=== PATIENT | male | born 1975 ===

== ENCOUNTER 2016-10-05 22:19 | Emergency (ER) | payer BC ==
[2016-10-05 22:38] VITALS: BMI 26.6
[2016-10-05 22:51] VITALS: RESP 18
[2016-10-06 02:17] VITALS: BP 144/87; PULSE 80; TEMP 98.1; O2SAT 98
--- NOTE | 2016-10-06 02:49 | ED PDOC ---
Arrival/HPI - General Chief Complaint: Lower Extremity Problem/Injury Time Seen by Provider: 10/05/16 23:04 Historian: Patient - History of Present Illness Narrative History of Present Illness (Text): 10/06/16 03:32 40-year-old male with a history of prior right knee pain and injury presents today with right knee pain that started while at work. He denies any recent trauma or injury. He is complaining of severe pain over the anterior aspect of the knee radiating into the thigh and into the calf. He denies numbness weakness or tingling in the extremity. Patient states after 911 he had arthroscopic knee surgery on the right knee and occasionally has been getting this exact pain in the leg. He denies fevers or chills. No chest pain or shortness of breath. No abdominal pain. No other complaints. Time/Duration: Prior to Arrival Symptom Onset: Sudden Symptom Course: Unchanged Quality: Aching, Tightness Severity Level: 5 Past Medical History - Provider Review Nursing Documentation Reviewed: Yes - Travel History Have you recently traveled outside [place] w/in the past 3 mons?: No - Infectious Disease Hx of Infectious Diseases: None - Tetanus Immunization Tetanus Immunization: >10 years Ago - Reproductive Currently : No Currently Lactating: No - Past Medical History Past Medical History: No Previous - Cardiac Hx Cardiac Disorders: No - Pulmonary Hx Asthma: Yes - Neurological Hx Neurological Disorder: No - HEENT Hx HEENT Disorder: No - Renal Hx Renal Disorder: No - Endocrine/Metabolic Hx Endocrine Disorders: (borderline DM) - Hematological/Oncological Hx Blood Disorders: No - Integumentary Hx Dermatological Disorder: No - Musculoskeletal/Rheumatological Hx Falls: No - Gastrointestinal Hx Gastrointestinal Disorders: No - Genitourinary/Gynecological Hx Genitourinary Disorders: No - Psychiatric Hx Psychophysiologic Disorder: No Hx Anxiety: No Hx Bipolar Disorder: No Hx Depression: No Hx Emotional Abuse: No Hx Hallucinations: No Hx Panic Disorder: No Hx Post Traumatic Stress Disorder: No Hx Psychosis: No Hx Physical Abuse: No Hx Schizophrenia: No Hx Sexual Abuse: No Hx Substance Use: No - Surgical History Hx Orthopedic Surgery: Yes (LEFT KNEE x2) - Anesthesia Hx Anesthesia: Yes Hx Anesthesia Reactions: No Hx Malignant Hyperthermia: No - Suicidal Assessment Feels Threatened In Home Enviroment: No Family/Social History - Physician Review Nursing Documentation Reviewed: Yes Family/Social History: Unknown Family HX Smoking Status: Never Smoked Hx Alcohol Use: No Hx Substance Use: No Hx Substance Use Treatment: No Allergies/Home Meds Allergies/Adverse Reactions: Allergies Penicillins Allergy (Verified 04/11/15 00:47) RASH Home Medications: Home Meds Medication Instructions Recorded Confirmed Albuterol HFA [Ventolin HFA 90 1 puff INH PRN PRN 04/11/15 12/29/15 mcg/actuation (8 g)] Fluticasone/Salmeterol 500/50 1 puff INH DAILY 04/11/15 12/29/15 [Advair Diskus 500/50] Review of Systems - Review of Systems Constitutional: absent: Fatigue, Fevers Respiratory: absent: SOB, Cough Cardiovascular: absent: Chest Pain, Palpitations Gastrointestinal: absent: Abdominal Pain, Nausea, Vomiting Musculoskeletal: Arthralgias Skin: absent: Rash, Pruritis Neurological: absent: Headache, Dizziness Physical Exam Vital Signs Reviewed: Yes Vital Signs Temp Pulse Resp BP Pulse Ox 10/06/16 02:16 98.1 F 80 18 144/87 98 10/05/16 22:50 98.4 F 99 H 18 142/80 97 Temperature: Afebrile Blood Pressure: Normal Pulse: Regular Respiratory Rate: Normal Appearance: Positive for: Well-Appearing, Non-Toxic, Comfortable Pain Distress: None Mental Status: Positive for: Alert and Oriented X 3 - Systems Exam Head: Present: Atraumatic Respiratory/Chest: Present: Clear to Auscultation Cardiovascular: Present: Regular Rate and Rhythm Lower Extremity: Present: CALF TENDERNESS, NORMAL PULSES, Tenderness (right knee ; + ttp over anterior medial aspect of knee; limited rom with pain. + ttp over anterior thigh and calf. sensation and distal pulses intact. cap refill <2. ), Neurovascularly Intact, Capillary Refill < 2 s. No: Normal ROM, Swelling, Erythema, Deformity, Temperature Abnormalties Neurological: Present: GCS=15 Skin: Present: Warm, Dry, Normal Color. No: Rashes Psychiatric: Present: Alert, Oriented x 3 Medical Decision Making ED Course and Treatment: 10/06/16 03:35 Patient nontoxic well-appearing in no distress with stable vital signs X-rays of the knee: No fracture Venous duplex of the right lower extremity: No DVT verbal report from power lineman technician Toradol IM Patient placed in knee immobilizer. Crutches given for ambulation Patient reassessment: Patient feeling better after medications I discussed all results with patient advised to followup with the orthopedist for the next 2 days. Return if symptoms worsen persist or new symptoms develop Patient verbalizes understanding of discharge instructions and need for immediate followup. Impression: knee pain Motrin every 6 hours as needed for pain Rest, ice, compression, elevation Use crutches for ambulation Followup with the orthopedist within the next 2 days Followup with primary care physician within the next 2 days Return if symptoms worsen persist or if new symptoms develop - RAD Interpretation Radiology Orders: 10/05/16 23:05 KNEE RIGHT 2 VIEWS (AP & LAT) [RAD] Stat DUPLEX LOWER EXTRM VEIN RIGHT [US] Stat - Medication Orders Current Medication Orders: Discontinued Medications Ketorolac Tromethamine (Toradol) 60 mg IM STAT STA Stop: 10/05/16 23:06 Last Admin: 10/06/16 00:15 Dose: 60 mg Disposition/Present on Arrival - Present on Arrival Any Indicators Present on Arrival: No History of DVT/PE: No History of Uncontrolled Diabetes: No Urinary Catheter: No History of Decub. Ulcer: No History Surgical Site Infection Following: None - Disposition Have Diagnosis and Disposition been Completed?: Yes Diagnosis: Knee pain, Leg pain Disposition: HOME/ ROUTINE Disposition Time: 02:11 Patient Plan: Discharge Patient Problems: Current Active Problems Problem Status Onset Knee pain Acute Leg pain Acute Condition: GOOD Discharge Instructions (ExitCare): Knee Pain (ED), Arthralgia (ED) Additional Instructions: motrin every 6 hours as needed for pain rest, ice, compression, elevation follow up with the orthopedist within the next 2 days follow up with the primary care physician within the next 2 days use knee immobilizer and crutches for ambulation Return immediately if symptoms worsen persist or if new symptoms develop: Increasing pain, high fevers, redness, swelling or any other concerning symptoms develop Prescriptions: Ibuprofen [Motrin] 600 mg PO Q6H PRN #20 tab PRN Reason: pain/fever reduction Referrals: Grant Alejo MD [Staff Provider] - Follow up with primary Forms: [employer] ([place]), WORK NOTE
--- NOTE | 2016-10-06 08:06 | US ---
PROCEDURE: Right lower extremity venous US HISTORY: Leg pain and swelling. Evaluate for DVT. PHYSICIAN(S): Giovanni Silver M.D. TECHNIQUE: Duplex sonography and color-flow Doppler with graded compression were used to evaluate the deep venous system of the right lower extremity. FINDINGS: The visualized deep venous system of the right lower extremity is sonographically normal and compressible. Normal waveforms and augmentation are seen. There is no sonographic evidence for deep venous thrombosis in the visualized segments of the right lower extremity. IMPRESSION: 1. No sonographic evidence for deep venous thrombosis in the visualized segments of the right lower extremity.
--- NOTE | 2016-10-06 09:16 | RAD ---
PROCEDURE: Right Knee Radiographs. HISTORY: knee pain COMPARISON: None FINDINGS: BONES: Normal. No fracture. JOINTS: Normal. No osteoarthritis. JOINT EFFUSION: None. OTHER FINDINGS: None. IMPRESSION: Normal radiographs of the right knee.
== END 2016-10-06 02:30 | disposition home or self-care (01) ==
LOC: ED 22:19
DX: M25.561 Pain in right knee (principal); M79.604 Pain in right leg
CPT/HCPCS: 29530; 73560; 93971; 96372; 99284; J1885